=== PATIENT | male | born 1995 | race Two or more races ===

== ENCOUNTER 2017-05-20 18:57 | Emergency (ER) | payer OTHER ==
[~2017-05-20] VITALS: Ht 177.8 cm; Wt 77.7 kg
[2017-05-20] MEDS ORDERED: ADACEL/BOOSTRIX VACCINE (DIPHTH/PERTUSS/ACELL/TETANUS)0.5ML SYR (90715) IM ONE (22:00)
[2017-05-20] MEDS ORDERED: LIDOCAINE 2% MDV 20 ML VIAL SC ONE (22:00)
[2017-05-20] MEDS ORDERED: AUGMENTIN 875 MG TAB PO ONE (22:00)
[2017-05-20] MEDS ORDERED: traMADol 50 MG TAB PO ONE (22:00)
[2017-05-20] MEDS ORDERED: BACITRACIN OINT 30GM TOP STA (22:21)
[2017-05-20] MEDS ORDERED: AUGM875T28 PO (22:23)
[2017-05-20 22:44] VITALS: BP 131/72
== END 2017-05-20 22:40 | disposition home or self-care (01) ==
LOC: M ED 18:57
DX: S61.012A Laceration without foreign body of left thumb without damage to nail, initial encounter (principal); W26.8XXA Contact with other sharp object(s), not elsewhere classified, initial encounter; Y92.9 Unspecified place or not applicable; Y93.9 Activity, unspecified; Y99.0 Civilian activity done for income or pay; F17.200 Nicotine dependence, unspecified, uncomplicated

== ENCOUNTER 2018-01-30 03:27 | Emergency (ER) | payer SELFPAY, OTHER ==
[2018-01-30] MEDS: AUGMENTIN 875 MG TAB PO (04:45)
== END 2018-01-30 05:11 | disposition home or self-care (01) ==
LOC: M ED 03:27
DX: S20.419A Abrasion of unspecified back wall of thorax, initial encounter (principal); S40.811A Abrasion of right upper arm, initial encounter; S40.812A Abrasion of left upper arm, initial encounter; S10.91XA Abrasion of unspecified part of neck, initial encounter; S21.151A Open bite of right front wall of thorax without penetration into thoracic cavity, initial encounter; S81.851A Open bite, right lower leg, initial encounter; Y04.1XXA Assault by human bite, initial encounter; Y04.8XXA Assault by other bodily force, initial encounter; Y92.9 Unspecified place or not applicable; Y93.9 Activity, unspecified; Y99.9 Unspecified external cause status; Z72.0 Tobacco use
CPT/HCPCS: 99284

== ENCOUNTER 2019-06-15 08:19 | Emergency (ER) | payer OTHER, SELFPAY ==
[~2019-06-15] VITALS: Ht 177.8 cm; Wt 72.7 kg
[~2019-06-15 08:19] MED LIST: AUGM500T34 PO; AUGM875T28 PO
[2019-06-15] MEDS ORDERED: ACETAMINOPHEN 325 MG TAB PO ONE (08:45)
[2019-06-15] MEDS ORDERED: IBUPROFEN 800 MG TAB PO ONE (08:45)
[2019-06-15] MEDS ORDERED: PENI500T PO (09:12)
[2019-06-15 09:26] VITALS: BP 138/76
== END 2019-06-15 09:25 | disposition home or self-care (01) ==
LOC: M ED 08:19
DX: J02.0 Streptococcal pharyngitis (principal)

== ENCOUNTER 2021-08-01 23:21 | Emergency (ER) | payer OTHER, SELFPAY ==
[~2021-08-01] VITALS: Ht 177.8 cm; Wt 85.5 kg
[~2021-08-01 23:21] MED LIST changes: +PENI500T PO
[2021-08-01 23:22] VITALS: BP 171/103
== END 2021-08-02 06:20 | disposition left against medical advice (07) ==
LOC: M ED 23:21
DX: Z53.21 Procedure and treatment not carried out due to patient leaving prior to being seen by health care provider (principal)